=== PATIENT | female | born 1955 | race Hispanic/Latino ===

== ENCOUNTER → 2020-03-31 | Outpatient (CLI) | payer OTHER ==
[~2020-03-31] MED LIST: LIDOCAINE HCL 2% JELLY 5 ML ONE
== END | disposition home or self-care (01) ==
LOC: WHH 08:59
PROVIDERS: ATTEND Family Medicine
DX: E11.622 Type 2 diabetes mellitus with other skin ulcer (principal); L97.322 Non-pressure chronic ulcer of left ankle with fat layer exposed; S90.522A Blister (nonthermal), left ankle, initial encounter; I10 Essential (primary) hypertension; E78.5 Hyperlipidemia, unspecified; E66.9 Obesity, unspecified; K21.9 Gastro-esophageal reflux disease without esophagitis; E03.9 Hypothyroidism, unspecified; F32.9 Major depressive disorder, single episode, unspecified; F41.9 Anxiety disorder, unspecified; Z68.31 Body mass index [BMI] 31.0-31.9, adult; X58.XXXA Exposure to other specified factors, initial encounter; Y93.89 Activity, other specified; Y92.89 Other specified places as the place of occurrence of the external cause; Y99.8 Other external cause status
CPT/HCPCS: 11042; 87070; A6021; A6197

== ENCOUNTER 2020-04-03 08:00 | Observation (INO) | payer OTHER ==
[~2020-04-03] VITALS: Ht 154.9 cm; Wt 81.2 kg
[2020-04-03 15:17] LABS: BASOPHILS % (AUTO) 0.5 % (0.0-5.0); EOSINOPHILS % (AUTO) 5.1 % (0.0-8.0); HEMATOCRIT 37.4 % (36-48); LYMPHOCYTES % (AUTO) 28.9 % (21.0-51.0); MEAN CORPUSCULAR HEMOGLOBIN 27.8 pg (27.0-33.0); MEAN CORPUSCULAR HGB CONC 31.6 g/dL (32.0-36.0); MEAN CORPUSCULAR VOLUME 88.2 fL (79-99); MONOCYTES % (AUTO) 8.8 % (3.0-13.0); NEUTROPHILS % (AUTO) 56.4 % (40.0-77.0); PLATELET COUNT (AUTO) 281 K/uL (130-400); RED BLOOD CELL COUNT(AUTO) 4.24 MIL/uL (4.00-5.50); RED CELL DISTRIBUTION WIDTH 13.2 % (11.0-15.5); WHITE BLOOD COUNT (AUTO) 10.3 K/uL (4.8-10.8)
[2020-04-03 15:32] LABS: CREATININE 0.8 mg/dL (0.5-1.5); POTASSIUM 4.4 mmol/L (3.5-5.1)
[2020-04-03 16:03] VITALS: BP 149/70
[2020-04-03] MEDS ORDERED: INSLAN SQ ×2 (16:41)
[2020-04-03] MEDS ORDERED: ASPI-1197 PO (17:24)
[2020-04-03] MEDS ORDERED: AMLO-257 PO (17:24)
[2020-04-03] MEDS ORDERED: METO50TA18 PO (17:24)
[2020-04-03] MEDS ORDERED: vitamin b12 PO (17:24)
[2020-04-03] MEDS ORDERED: METF-446 PO ×2 (17:24)
[2020-04-03] MEDS ORDERED: HYDR25TA PO (17:24)
[2020-04-03] MEDS ORDERED: LISI40TA4 PO (17:24)
[2020-04-03] MEDS ORDERED: SIMV-46 PO (17:24)
[2020-04-03] MEDS ORDERED: CEPH500T PO (17:24)
[2020-04-06] VITALS (24 sets, daily range): BP systolic 103–168; BP diastolic 42–75
[2020-04-06] MEDS ORDERED: CEFAZOLIN SODIUM 1 GM VIAL IVP ONE (08:00)
[2020-04-06] MEDS ORDERED: SODIUM CHLORIDE 0.9% 1000ML 1,000 ML IV ONE (08:05)
[2020-04-06] MEDS ORDERED: PROPOFOL 10 MG/ML 20ML VIAL IV ONE (09:38)
[2020-04-06] MEDS ORDERED: LIDOCAINE PF 2% 5ML ABBOJECT ONE (09:38)
[2020-04-06] MEDS ORDERED: MIDAZOLAM HCL 1 MG/ML 2ML VIAL ONE (09:38)
[2020-04-06] MEDS ORDERED: SUCCINYLCHOLINE CHLORIDE 20 MG/ML 10 ML VIAL ONE (09:38)
[2020-04-06] MEDS ORDERED: ROCURONIUM 10MG/1ML SYR 10 MG/ML ML ONE (09:45)
[2020-04-06] MEDS: CEFAZOLIN SODIUM 1 GM VIAL IVP SCH ×2 (09:50→17:00)
[2020-04-06] MEDS ORDERED: CEFAZOLIN SODIUM 1 GM VIAL IRRIG ONE (10:12)
[2020-04-06] MEDS ORDERED: PHENYLEPHRINE HCL 10 MG/ML 1ML VIAL IV ONE (10:14)
[2020-04-06] MEDS ORDERED: GLYCOPYRROLATE 1 MG/5 ML SYRINGE ONE (10:46)
[2020-04-06] MEDS ORDERED: NEOSTIGMINE 5MG/5ML SYR IV ONE (10:47)
[2020-04-06] MEDS ORDERED: ONDANSETRON HCL 4 MG/2 ML VIAL ONE ×3 (10:48→11:59)
[2020-04-06] MEDS ORDERED: ROPIVACAINE 0.5% 5MG/ML 30ML IJ ONE (10:55)
[2020-04-06] MEDS ORDERED: LIDOCAINE HCL-MPF 1% 2ML VIAL IV PRN (11:15)
[2020-04-06] MEDS ORDERED: POTASSIUM CHLORIDE 20 MEQ ERTAB PO PRN (11:15)
[2020-04-06] MEDS ORDERED: POTASSIUM CHLORIDE 20MEQ/100ML 100 ML IV PRN (11:15)
[2020-04-06] MEDS: SODIUM CHLORIDE 0.9% 1000ML 1,000 ML IV SCH ×2 (11:15→21:25)
[2020-04-06] MEDS ORDERED: FERROUS FUMARATE 324 MG TABLET PO PRN (11:15)
[2020-04-06] MEDS ORDERED: KETOROLAC TROMETHAMINE 15MG/ML IV PRN (11:15)
[2020-04-06] MEDS ORDERED: DIPHENHYDRAMINE HCL 25 MG CAPSULE PO PRN (11:15)
[2020-04-06] MEDS ORDERED: HYDROCODONE/ACETAMINOPHEN 5/325 MG TAB PO PRN ×2 (11:15)
[2020-04-06] MEDS ORDERED: ONDANSETRON HCL 4 MG/2 ML VIAL IVP PRN (11:15)
[2020-04-06] MEDS ORDERED: CALCIUM CARBONATE 500 MG TABLET PO PRN (11:15)
[2020-04-06] MEDS ORDERED: TEMAZEPAM 15 MG CAPSULE PO PRN (11:15)
[2020-04-06] MEDS ORDERED: DiphenhydrAMINE HCL 50 MG/ML VIAL IVP PRN (11:15)
[2020-04-06] MEDS ORDERED: POTASSIUM CHLORIDE 10% ELIXIR 20 MEQ/15 ML UDCUP PO PRN (11:15)
[2020-04-06] MEDS: ACETAMINOPHEN EXTRA STRENGTH 500 MG TABLET PO SCH ×2 (11:15→21:23)
[2020-04-06] MEDS: INSULIN HUMULIN R 100 UNIT/ML 3ML SQ SCH ×3 (11:30→21:00)
[2020-04-06] MEDS ORDERED: NON-FORMULARY MEDICATION 1 EACH (Metformin HCl 500 MG) PO SCH (12:45)
--- NOTE | 2020-04-06 15:13 | NUR ---
[facility] CM met with pt discussed dc plans. Pt is independent prior to admission, lives at home with daughter. Pt has a standard walker no wheels, wheelchair, shower chair. Uses [employer] for meds. One small step in front of door. Denies any other equipments/services. Feels safe to go back home, still drives and works, daughters able to assist with transportation and needs as necessary. Verified w/Dr Elmore, pt will not be needing HH on DC. DC plan to home once stable. CM to continue to follow up. Addendum: 04/06/20 at 1516 by MURALI PRADO LVN Amended: Links added.
--- NOTE | 2020-04-06 15:25 | NUR ---
pt. is S/P Left ankle Fracture, patient reports very nauseated and numbness noted to left lower extremity.Daughter Elicia is at bedside.Will initiate skilled Physical Therapy tomorrow 04/07/2020 Addendum: 04/06/20 at 1540 by JEANINE HILL, PT PT Amended: Links added.
[2020-04-06] MEDS ORDERED: HYDROCHLOROTHIAZIDE 25 MG TABLET PO SCH (21:00)
[2020-04-06] MEDS ORDERED: VITAMIN B12 500 MCG PO SCH (21:00)
[2020-04-06] MEDS ORDERED: LISINOPRIL 40 MG TABLET PO SCH (21:00)
[2020-04-06] MEDS ORDERED: CYANOCOBALAMIN (VITAMIN B-12) 1,000 MCG TABLET PO SCH (21:00)
[2020-04-06] MEDS ORDERED: ASPIRIN 81MG TAB.CHEW PO SCH (21:00)
[2020-04-06] MEDS ORDERED: METFORMIN HCL 500 MG TABLET PO SCH (21:00)
[2020-04-06] MEDS ORDERED: INSULIN GLARGINE 100 UNITS/ML 10 ML VIAL SQ SCH (21:00)
[2020-04-06] MEDS ORDERED: NON-FORMULARY MEDICATION 1 EACH (Metformin HCl 1,000 MG) PO SCH (21:00)
[2020-04-06] MEDS ORDERED: SIMVASTATIN 20 MG TABLET PO SCH (21:00)
[2020-04-06] MEDS ORDERED: AMLODIPINE BESYLATE 5 MG TAB PO SCH (21:00)
[2020-04-06] MEDS ORDERED: NON-FORMULARY MEDICATION 1 EACH (Simvastatin 40 MG) PO SCH (21:00)
[2020-04-06] MEDS: FAMOTIDINE 20MG TAB 20 MG TAB PO SCH (21:21)
[2020-04-06] MEDS: METOPROLOL TARTRATE 50 MG TAB PO SCH (21:22)
[2020-04-06] MEDS: ENOXAPARIN SODIUM 40 MG/0.4 ML SYRINGE SQ SCH (21:25)
[2020-04-07] MEDS: CEFAZOLIN SODIUM 1 GM VIAL IVP SCH (01:10)
[2020-04-07] MEDS: ACETAMINOPHEN EXTRA STRENGTH 500 MG TABLET PO SCH ×2 (03:20→11:43)
[2020-04-07 03:47] LABS: HEMATOCRIT 32.2 % (36-48); MEAN CORPUSCULAR HEMOGLOBIN 27.8 pg (27.0-33.0); RED BLOOD CELL COUNT(AUTO) 3.7 MIL/uL (4.00-5.50); RED CELL DISTRIBUTION WIDTH 13.2 % (11.0-15.5); WHITE BLOOD COUNT (AUTO) 11.3 K/uL (4.8-10.8)
[2020-04-07 03:57] LABS: CREATININE 0.8 mg/dL (0.5-1.5); POTASSIUM 3.7 mmol/L (3.5-5.1)
[2020-04-07 04:32] VITALS: BP 117/57
[2020-04-07] MEDS: INSULIN HUMULIN R 100 UNIT/ML 3ML SQ SCH ×2 (05:28→11:30)
[2020-04-07] MEDS: SODIUM CHLORIDE 0.9% 1000ML 1,000 ML IV SCH (07:15)
[2020-04-07 08:10] VITALS: BP_SYST 104; BP_SYST 113; BP_DIAS 49; BP_DIAS 62
[2020-04-07] MEDS: METOPROLOL TARTRATE 50 MG TAB PO SCH (08:39)
[2020-04-07] MEDS: METFORMIN HCL 500 MG TABLET PO SCH ×2 (08:39→11:43)
[2020-04-07] MEDS: FAMOTIDINE 20MG TAB 20 MG TAB PO SCH (08:39)
[2020-04-07] MEDS: ENOXAPARIN SODIUM 40 MG/0.4 ML SYRINGE SQ SCH (08:40)
[2020-04-07] MEDS ORDERED: INSULIN GLARGINE 100 UNITS/ML 10 ML VIAL SQ SCH (09:00)
[2020-04-07] MEDS ORDERED: POLYETHYLENE GLYCOL 3350 17 GM POWD.PACK PO SCH (09:00)
[2020-04-07 11:30] VITALS: BP 104/42
[2020-04-07] MEDS ORDERED: HYDR-4457 PO (12:03)
[2020-04-07] MEDS ORDERED: ASPI-1197 PO (12:03)
--- NOTE | 2020-04-07 14:12 | NUR ---
DISCHARGE PATIENT GIVEN DISCHARGE INSTRUCTIONS AND EDUCATION ON FOLLOW UP APPOINTMENTS, NEW PRESCRIBED MEDICATION (ASA,NORCO), NWB LEFT LEG STATUS. PATIENT VERBALIZED UNDERSTANDING OF ALL EDUCATION GIVEN VIA TEACH BACK. NO DISTRESS NOTED UPON DISCHARGE. ALL BELONGINGS TAKEN WITH.
[2020-04-09] MEDS ORDERED: BISACODYL 10 MG SUPP.RECT RC PRN (11:15)
== END 2020-04-07 14:30 | disposition home or self-care (01) ==
LOC: DAHIP 04-06 07:23 → EDSTATUS 04-06 08:00 → 3AH 04-06 11:54
PROVIDERS: ADMIT Orthopaedic Surgery; ATTEND Orthopaedic Surgery
DX: S82.852A Displaced trimalleolar fracture of left lower leg, initial encounter for closed fracture (principal); Z20.828 Contact with and (suspected) exposure to other viral communicable diseases; E11.9 Type 2 diabetes mellitus without complications; E78.5 Hyperlipidemia, unspecified; I10 Essential (primary) hypertension; Z79.899 Other long term (current) drug therapy
CPT/HCPCS: 27823; 36415 ×2; 73610; 80048 ×2; 82948 ×7; 85025; 85027; 87641; 96361 ×2; 96372 ×2; 96374; 96376; 97039; 97116 ×2; 97161; A4215; A4216; A4221; A4222; A4223 ×2; A4600; A4649 ×3; A4663; A4930; A6223; C1713 ×4; C1776; G0378 ×18; G8978; G8979; G8980; G8981; G8982; G8983; J0330; J0690 ×4; J1650 ×2; J2001; J2250; J2370; J2405 ×3; J2704; J2710; J2795; J3490; J7030 ×2; Q4051 ×2; U0003